=== PATIENT | male | born 2000 | race Caucasian/White ===

== ENCOUNTER → 2019-05-19 15:33 | Outpatient (POV) | payer MEDICAID, SELFPAY | PROVIDERS: Visit Provider Dermatology | DX: Z00.00 Encounter for general adult medical examination without abnormal findings (principal) ==

== ENCOUNTER 2021-05-31 16:42 | Emergency (ER) | payer OTHER, SELFPAY ==
[2021-05-31 17:38] VITALS: BP 141/83; PULSE 86; RESP 16; TEMP 36.9; O2SAT 98; BMI 36.6
--- NOTE | 2021-05-31 17:52 | HMH.EDUTC ---
[facility] [place] Clinical Impression: Encounter for laboratory testing for COVID-19 virus Disposition: Home, Self-Care Condition on Discharge: Good Instructions: DI for Viral Syndrome, DI for COVID-19 (Suspected or Confirmed ), Coronavirus Disease 2019, Preventing the Spread of Coronavirus Discharge Instructions Additional Instructions: *Monitor Temp, Over the counter Motrin or Tylenol as directed/as needed Tylenol every 4 hours and Motrin every 6 hours (as long as your family doctor has told you that you can take it) for fever or pain. and straight to ER if unable to lower temp less than 101.0 after medication given *Warm salt water gargles may help to soothe the throat *Throat Lozenges *Warm fluids like tea with honey may help to soothe the throat *Sleep elevated *Humidifier/Vaporizer Follow up IMMEDIATELY for new or worsening symptoms or no Noticeable improvement over the next 48-72 hours. 911 for difficulty breathing or swallowing You were tested for today for COVID19 your test result should be back in the next 24-48 hours, you may call to the [facility] to see if your test results are back in the next 48 hours [phone] [facility] hours are 9am-9pm You was given a handout with instructions for Self Quarantine and Self isolation for while you wait on test results and what to do if they are positive If you are positive the Health Dept will be contacting you also Referrals: Avery Moran [Primary Care Provider] - As needed Forms: Work/School Release Medical Decision Making - Barrett Inquiry Pt receiving controlled substance: No Barrett was queried for this patient: No Vital Signs: 05/31/21 17:38 Temperature 98.5 F Temperature Source Oral Pulse Rate [Left] 86 Respiratory Rate 16 Blood Pressure [Right Arm] 141/83 H Blood Pressure Mean [Right Arm] 102 02 Sat by Pulse Oximetry 98 Orders (Tests/Meds): ORDERS Category Date Time Status Covid-19 Nasal PCR ([facility]) Routine Lab 05/31/21 17:33 Received [facility] [place] - General Stated complaint: Covie with symptom Time Seen by Provider: 05/31/21 17:52 Mode of Arrival: Wheelchair Source of Information: Patient Limitations: No Limitations Description of Symptoms (Recalled from Triage Doc. by RN): pt c/o HERNANDEZ and muscle soarness HEENT Symptoms (Recalled from RN notes): Yes (HERNANDEZ) Resp Symptoms (Recalled from RN notes): No Skin Symptoms (Recalled from RN notes): No MS Symptoms (Recalled from RN notes): No Functional Status (Recalled from RN notes): muscle soarness - History of Present Illness Provider Complaint: Patient states that he was at work earlier and was having body aches, chills, and headache States that his work was concerned with COVID and wanted him to get checked - Related Data Allergies Allergy/AdvReac Type Severity Reaction Status Date / Time sulfamethoxazole Allergy Verified 05/31/21 17:44 [From Bactrim] trimethoprim [From Bactrim] Allergy Verified 05/31/21 17:44 - Worker's Comp Is this a Worker's Comp case?: No [facility] History - Hepatitis A Screen Drug use history?: No High risk sexual behaviors?: No History of sexually transmitted infection?: No Currently employed?: No Childcare worker?: No Do you have indoor plumbing?: Yes Do you have electricity?: Yes Attestation statement:: This patient has been screened for Hepatitis A risk factors. I have reviewed the patient's past medical history: Yes ROS Obtained: Yes All systems reviewed & no additional complaints, Yes Systems reviewed as appropriate & no additional complaints - Constitutional Constitutional: Reports system reviewed and no additional complaints, except as docu, Reports body ache, Reports chills, Reports fatigue, Reports fever(s), Reports headache(s) - ENT Ears, Nose, Mouth, and Throat: Reports system reviewed and no additional complaints, except as docu, Denies nasal congestion, Denies nasal discharge, Denies sore throat - Cardiovascular Cardiovascular: Reports system revie
[2021-05-31 18:13] VITALS: BP 129/80; PULSE 84; RESP 16; TEMP 36.9
== END 2021-05-31 18:13 | disposition home or self-care (01) ==
PROVIDERS: Emergency Provider Nurse Practitioner; PCP Pediatrics
DX: Z20.822 Contact with and (suspected) exposure to COVID-19 (principal)
CPT/HCPCS: 99202; G0463; U0003

== ENCOUNTER 2024-04-24 22:58 | Emergency (ER) | payer SELFPAY ==
[2024-04-24 23:00] VITALS: BP 122/82; PULSE 106; RESP 20; TEMP 37; O2SAT 98; BMI 43.4
--- NOTE | 2024-04-24 23:05 | CT_ITS ---
PROCEDURE INFORMATION: Exam: CT Lumbar Spine Without Contrast Exam date and time: 04/24/2024 11:20 PM Age: 23 years old Clinical indication: Injury or trauma; Fall; Other: Left lower back pain; Additional info: Fall from standing, left low back pain TECHNIQUE: Imaging protocol: Computed tomography of the lumbar spine without contrast. Radiation optimization: All CT scans at this facility use at least one of these dose optimization techniques: automated exposure control; mA and/or kV adjustment per patient size (includes targeted exams where dose is matched to clinical indication); or iterative reconstruction. COMPARISON: No relevant prior studies available. FINDINGS: Bones/joints: Acute fracture through the left transverse process of L1. No significant displacement. No other fractures. Soft tissues: Unremarkable. IMPRESSION: Acute fracture through the left transverse process of L1. No significant displacement. No other fractures.
--- NOTE | 2024-04-24 23:07 | ED_ITS ---
Discharge Plan Disposition Patient Disposition: Home, Self-Care Prescriptions Prescriptions: New methocarbamol 500 mg tablet 1,000 mg PO Q6H PRN (Reason: pain) Qty: 60 1RF lidocaine 5 % adhesive patch,medicated 1 patch topical DAILY PRN (Reason: pain) Qty: 30 0RF Rx Instructions: leave on most painful area for up to 12 hrs Referrals Follow up/Referrals: Provider,Referral, MD [Primary Care Provider] - See instructions Activity Restrictions/Add. Instructions Additional Instructions/Restrictions: Please take Tylenol ibuprofen Robaxin and use lidocaine patches as needed for pain. Avoid excessive exertion that causes worsening pain. Please return to the emergency department if you develop any new or worsening symptoms or become concerned for your health. Clinical Impressions Clinical Impression: Closed fracture of transverse process of lumbar vertebra Qualifiers: Encounter type: initial encounter Qualified Code(s): S32.009A - Unspecified fracture of unspecified lumbar vertebra, initial encounter for closed fracture Instructions Patient Instructions: DI for Transverse Process Fracture Discharge ED Provider: Rosendo Bartlett General Adult HPI General Chief complaint: Back Pain/Injury Stated complaint: AO fall 04/24, back pain Time Seen by Provider: 04/24/24 23:05 History of Present Illness HPI narrative: 23-year-old male without significant past medical history presents for left- sided low back pain after a fall from standing. He reports that he was wrestling with his brother when he fell backwards and landed flat on his back. Since that time he has had left-sided low back pain. He denies any numbness tingling or weakness in the legs. Denies any difficulty with urinating or bowel function. He did not take thing for pain prior to arrival. He reports pain is worse when sitting. He reports pain is primarily paraspinal. Related Data Previous Rx's Medication Instructions Recorded lidocaine 5 % topical patch 1 patch topical DAILY PRN pain #30 04/24/24 ea methocarbamol 500 mg tablet 1,000 mg (2 x 500 mg) PO Q6H PRN 04/24/24 pain #60 tabs Allergies Allergy/AdvReac Type Severity Reaction Status Date / Time sulfamethoxazole Allergy Verified 05/31/21 17:44 [From Bactrim] trimethoprim [From Bactrim] Allergy Verified 05/31/21 17:44 [facility] Disclaimer: The information contained in this section may have been updated after the patient was seen, as this information can be updated by other users. Social History Smoking Status: Current every day smoker alcohol intake: never current occupational status: employed Travel in the last 8 weeks: None ROS Obtained: Yes All systems reviewed & no additional complaints except as documented Physical Exam General General appearance: alert and in no apparent distress Head Head exam: atraumatic and normocephalic Eye Eye exam: Present normal appearance, PERRL and EOMI ENT ENT exam: Present normal oropharynx and normal external ear exam Neck Neck exam: Present normal inspection and full ROM Chest Chest inspection: Present normal inspection and symmetric chest wall rise; Absent tenderness Respiratory Respiratory exam: Present normal lung sounds bilaterally; Absent respiratory distress Cardiovascular Cardiovascular exam: Present regular rate and normal rhythm Abdominal Exam Abdominal exam: Present soft; Absent distention, tenderness or guarding Extremities Exam Extremities exam: Present normal inspection; Absent edema or joint swelling Back Exam Back exam: Present normal inspection and tenderness (Left paraspinal lumbar) Neurological Exam Neurological exam: Present alert and oriented X3; Absent motor sensory deficit Psychiatric Psychiatric exam: Present normal affect and normal mood Skin Skin exam: Present warm, dry and normal color Lymphatic Lymphatic Findings: no adenopathy Medical Decision Making Medical Records Medical records reviewed: Yes I reviewed the patient's medical records. Barrett Inquiry Pt receiving controlled substance: No Barrett was queried for this patient: No Vital Signs: 04/24/24 23:00 04/25/24 00:01 Temperature 98.6 F 98.2 F Temperature Source Oral Oral Pulse Rate 72 Pulse Rate [Right Radial] 106 H Respiratory Rate 20 18 Blood Pressure 128/71 Blood Pressure [Right Arm] 122/82 Blood Pressure Mean [Right Arm] 95 Blood Pressure Source [Right Arm] Automatic Cuff Blood Pressure Position [Right Arm] Supine 02 Sat by Pulse Oximetry 98 Oxygen Delivery Method Room Air Room Air Lab Data Lab results reviewed: Yes I reviewed the patient's lab results. Orders (Tests/Meds): ED MEDICATIONS Discontinued Medications Generic Name Dose Route Start Last Admin Trade Name Freq PRN Reason Stop Dose Admin Acetaminophen 1,000 mg 04/24/24 23:05 04/24/24 23:12 Acetaminophen 500mg Tab PO 04/24/24 23:06 1,000 mg ONCE ONE Administration Ketorolac Tromethamine 30 mg 04/24/24 23:05 04/24/24 23:13 Ketorolac 30mg/Ml Vial IM 04/24/24 23:06 30 mg ONCE ONE Administration Methocarbamol 1,000 mg 04/24/24 23:05 04/24/24 23:13 Methocarbamol 500mg Tablet PO 04/24/24 23:06 1,000 mg ONCE ONE Administration ORDERS Category Date Time Status CT lumbar spine wo con Stat Cat Scan 04/24/24 23:05 Completed Medical Decision Narrative: 23-year-old male without significant past medical history presents with left- sided low back pain after a fall today. Differential diagnosis includes but not limited to fracture, dislocation, muscle strain, neurovascular injury. Exam is benign, chest mild left paraspinal tenderness. Patient given Tylenol and Toradol Robaxin for pain control. Will evaluate with Noncon CT of the lumbar spine. CT imaging independently interpreted by me and shows a minimally displaced left L1 transverse process fracture. No evidence of compression fracture or unstable injury. These findings were communicated with patient. He was discharged in stable condition with prescription for lidocaine patches, muscle relaxers, return precautions. Procedures Risk/Benefits of Procedure(s) Were Explained: Yes Critical Care Critical Care Time Critical Care Time: No
[2024-04-24] MEDS: ACETAMINOPHEN 500MG TAB 1000 MG PO (23:12)
[2024-04-24] MEDS: KETOROLAC 30MG/ML VIAL 30 MG IM (23:13)
[2024-04-24] MEDS: METHOCARBAMOL 500MG TABLET 1000 MG PO (23:13)
[2024-04-25 00:01] VITALS: BP 128/71; PULSE 72; RESP 18; TEMP 36.8; O2SAT 99
== END 2024-04-25 00:05 | disposition home or self-care (01) ==
PROVIDERS: Emergency Provider Emergency Medicine
DX: S32.019A Unspecified fracture of first lumbar vertebra, initial encounter for closed fracture (principal); W18.30XA Fall on same level, unspecified, initial encounter; M54.59 Other low back pain; F17.210 Nicotine dependence, cigarettes, uncomplicated
CPT/HCPCS: 72131; 96372; 99284; J1885

== ENCOUNTER 2024-12-27 21:23 | Emergency (ER) | payer SELFPAY ==
[2024-12-27 22:32] VITALS: BP 147/89; PULSE 103; RESP 17; TEMP 36.9; O2SAT 98; BMI 33.9
[2024-12-27] MEDS: KETOROLAC 30MG/ML VIAL 30 MG IM (23:32)
--- NOTE | 2024-12-27 23:39 | ED_ITS ---
Discharge Plan Disposition Patient Disposition: Home, Self-Care Condition: Good Prescriptions Prescriptions: New naproxen 500 mg tablet 500 mg PO BID Qty: 14 0RF prednisone 20 mg tablet 40 mg PO BID 5 Days Qty: 20 0RF Referrals Follow up/Referrals: Provider,Referral, [Primary Care Provider] - See instructions Activity Restrictions/Add. Instructions Additional Instructions/Restrictions: You were evaluated in the ER and are appropriate for discharge at this time. Take the prescribed naproxen as directed. Also take the prescribed prednisone as directed. Please call your primary care doctor and make an appointment for reevaluation in 2 to 3 days. Return to the ER with any new, worsening, or otherwise concerning symptoms as discussed. Clinical Impressions Clinical Impression: Pain of right great toe Print Language Print Language: Cameroonian Discharge ED Provider: Washington Hong Adult HPI General Chief complaint: PAIN Stated complaint: RT foot pain, poss gout Time Seen by Provider: 12/27/24 23:38 Mode of Arrival: Ambulatory Source of Information: Patient Description of Symptoms (Recalled from ER Triage Doc. by RN): He states he thinks he has gout in his right great toe. He states the pain is 8/10 and that it started Kirit night. He states he took ibuprofen 800mg at 1800. He denies having been previously diagnosed with gout. Thought he had a fever around 1800 but states he did not check his temperature. History of Present Illness HPI narrative: 24-year-old male presents to the ER with complaints of pain in the right great toe starting Kirit night. He took ibuprofen earlier. He reports he has previously had gout and this feels the same. He does not know what he has taken in the past for gout. No history of IV drug use. Patient denies any documented fevers, chills, chest pain, cough, congestion, other body aches, he has no other involved joints, states he otherwise feels well and normal. No known injuries. Related Data Previous Rx's ?Medication ?Instructions ?Recorded naproxen 500 mg tablet 500 mg PO BID #14 tabs 12/27/24 prednisone 20 mg tablet 40 mg (2 x 20 mg) PO BID 5 days 12/27/24 #20 tabs Allergies Allergy/AdvReac Type Severity Reaction Status Date / Time sulfamethoxazole (From Allergy Rash Verified 12/27/24 22:31 Bactrim) trimethoprim (From Bactrim) Allergy Rash Verified 12/27/24 22:31 [facility] Disclaimer: The information contained in this section may have been updated after the patient was seen, as this information can be updated by other users. Social History (Updated 04/25/24 @ 00:12 by Rosendo Bartlett MD) Smoking Status: Former smoker alcohol intake: never current occupational status: employed Travel in the last 8 weeks: None Have you lived/traveled outside [place] in past 30 days?: No Contact w/someone who lives/traveled outside [place] past 30 days?: No Exposure to someone with infectious disease in past 14 days?: No Do you have a fever (greater than 100.4 F or 38 C)?: No Have you tested positive for COVID-19: No Exposed to someone with COVID-19 in past 14 days?: No Do you have a sore throat?: No Do you have a cough?: No Do you have any weakness?: No Do you have any diarrhea?: No Are you experiencing any unusual bleeding?: No Do you have any muscle aches/pain?: No Do you have any abdominal pain?: No Are you experiencing loss of taste or smell?: No ROS Obtained: Yes Systems reviewed as appropriate & no additional complaints except as documented Per HPI Physical Exam General General appearance: alert, in no apparent distress and obese Head Head exam: atraumatic and normocephalic Eye Eye exam: Present PERRL and EOMI ENT ENT exam: Present mucous membranes moist Neck Neck exam: Present normal inspection and full ROM Chest Chest inspection: Present symmetric chest wall rise Respiratory Respiratory exam: Absent respiratory distress or stridor Cardiovascular Cardiovascular exam: Present regular rate and normal rhythm Extremities Exam Extremities exam: Present full ROM and joint swelling (Mild swelling and tenderness of the first metatarsophalangeal joint with slight associated erythema, there is no induration or fluctuance, neurovascularly intact, no deformity or bruising); Absent edema Neurological Exam Neurological exam: Present alert and oriented X3; Absent motor sensory deficit Psychiatric Psychiatric exam: Present normal affect and normal mood Skin Skin exam: Present warm and dry Medical Decision Making Medical Records Screening: Per USPSTF and CDC recommendations, given the prevalence of disease in our region, it is our hospital?s policy to screen for HIV and viral Hepatitis for all patients aged 18 and over and those with ongoing risk factors. Barrett Inquiry Pt receiving controlled substance: No Vital Signs: 12/27/24 22:32 12/27/24 23:47 Temperature 98.5 F 98.5 F Temperature Source Oral Oral Pulse Rate 90 Pulse Rate [Right Brachial] 103 H Respiratory Rate 17 18 Blood Pressure 137/74 Blood Pressure [Right Arm] 147/89 H Blood Pressure Mean [Right Arm] 108 Blood Pressure Source [Right Arm] Automatic Cuff Blood Pressure Position [Right Arm] Sitting 02 Sat by Pulse Oximetry 98 Oxygen Delivery Method Room Air Room Air Orders (Tests/Meds): ED MEDICATIONS Discontinued Medications Generic Name Dose Route Start Last Admin Trade Name Freq PRN Reason Stop Dose Admin Ketorolac Tromethamine 30 mg 12/27/24 23:28 12/27/24 23:32 Ketorolac 30mg/Ml Vial IM 12/27/24 23:29 30 mg ONCE ONE Administration Medical Decision Narrative: In summary, this 24-year-old male who reports history of gout presents to the emergency department today with concerns of gout flare in the right great toe. On initial evaluation patient is hemodynamically stable, afebrile, physical exam is notable for erythema, tenderness, and swelling of the right first metatarsophalangeal joint without induration or fluctuance, neurovascularly intact, no deformity or bruising. Differential diagnosis includes but is not limited to gout which is by far the most likely given patient's age, history, and location of pain. I considered the possibility of septic joint the patient has no reported risk factors and has no evidence of systemic illness. I do not believe labs or imaging are indicated at this time. Patient is reliable and reports he has a primary care doctor to follow-up with and is willing to return to the ER if anything is new or worsening. He received a dose of Toradol in the ER and I prescribed naproxen for outpatient management. Patient was given instructions on symptomatic management, follow up instructions, and strict return precautions for the emergency department including specific instructions to return if you were to develop any concerning signs of septic joint which I specifically discussed with him. Patient indicated understanding and was discharged in stable condition. Critical Care Critical Care Time Critical Care Time: No
[2024-12-27 23:47] VITALS: BP 137/74; PULSE 90; RESP 18; TEMP 36.9; O2SAT 95
== END 2024-12-27 23:49 | disposition home or self-care (01) ==
PROVIDERS: Emergency Provider Emergency Medicine
DX: M79.674 Pain in right toe(s) (principal); R50.9 Fever, unspecified
CPT/HCPCS: 96372; 99283; J1885

== ENCOUNTER 2025-01-25 17:14 | Outpatient (CLI) | payer OTHER, SELFPAY ==
[2025-01-25 17:41] LABS: Basophils # 0.1 K/mm3 (0-0.2); Basophils % 0.8 % (0.1-2.0); Eosinophils # 0.1 K/mm3 (0.0-0.4); Hematocrit 43.4 % (42.0-52.0); Hemoglobin 15.5 g/dL (14.1-18.0); Lymphocytes # 2.6 K/mm3 (0.7-4.5); Lymphocytes % 39.6 % (10-50); Mean Corpuscular HGB Conc 35.7 g/dL (31.8-35.4); Mean Corpuscular Hemoglobin 29.4 pg (27.0-31.2); Mean Corpuscular Volume 82.2 fl (80-94); Mean Platelet Volume 9.8 fl (7.4-10.4); Monocytes # 0.5 K/mm3 (0.1-1.0); Monocytes % 8.2 % (1.7-9.3); Neutrophils # 3.3 K/mm3 (1.8-7.8); Neutrophils % 49.2 % (37.0-80.0); Platelet Count 278 K/mm3 (142-424); Red Blood Count 5.28 M/mm3 (4.60-6.20); Red Cell Distribution Width 11.9 % (11.5-17.5); White Blood Count 6.6 K/mm3 (4.8-10.8)
[2025-01-25 18:21] LABS: Alanine Aminotransferase 85 U/L (12-78); Albumin Level 4.7 g/dl (3.5-5.0); Albumin/Globulin Ratio 1.6 (1.1-1.8); Alkaline Phosphatase 69 U/L (38-126); Anion Gap 15.1 mEq/L (5-15); Aspartate Amino Transferase 49 U/L (17-59); Bilirubin,Total 0.8 mg/dl (0.2-1.3); Blood Urea Nitrogen 11 mg/dl (9-20); Calcium 10.4 mg/dl (8.4-10.2); Carbon Dioxide 25 mmol/L (22.0-30.0); Chloride 102 mmol/L (98-107); Chol/HDL Ratio 4.6 (1-3.5); Cholesterol 162 mg/dl (140-200); Erythrocyte Sedimentation Rate 6 mm/hr (0-15); Estimated Glomerular Filt Rate 102 ml/min (>60); GFR (African American) 123 ML/MIN (>60); Globulin 2.9 g/dL (1.3-3.2); Glucose 84 mg/dl (74-100); HDL Cholesterol 35 mg/dl (40-60); Potassium 4.1 mmoL/L (3.5-5.1); Sodium 138 mmol/L (136-145); Total Protein,Serum 7.6 g/dl (6.3-8.2); Triglycerides 100 mg/dl (30-150); Uric Acid 9.2 mg/dl (3.5-8.5); VLDL Cholesterol 20 mg/dL (0-40)
[2025-01-25 18:38] LABS: C-Reactive Protein 0.9 mg/L (0-4); Direct LDL Cholesterol 98.31 mg/dL (100-129)
[2025-01-25 18:52] LABS: Thyroid Stimulating Hormone 1.85 uIU/mL (0.465-4.68)
[2025-01-25 20:04] LABS: Hemoglobin A1C 5.3 % (4.0-6.0)
== END 2025-01-25 23:59 | disposition home or self-care (01) ==
LOC: LAB 17:19
PROVIDERS: Visit Provider Physician Assistant
DX: R53.83 Other fatigue (principal); R29.818 Other symptoms and signs involving the nervous system; E66.01 Morbid (severe) obesity due to excess calories
CPT/HCPCS: 36415; 80053; 80061; 83036; 84443; 84550; 85025; 85651; 86140

== ENCOUNTER 2025-01-26 16:53 | Outpatient (CLI) | payer OTHER, SELFPAY ==
[2025-01-28 05:08] LABS: HBsAg Screen Negative (Negative); HCV Ab Non Reactive (Non Reactive); Hep A Ab, IGM Negative (Negative); Hep B Core Ab, IgM Negative (Negative)
== END 2025-01-26 23:59 | disposition home or self-care (01) ==
LOC: LAB 16:54
PROVIDERS: PCP Physician Assistant; Visit Provider Physician Assistant
DX: R74.01 Elevation of levels of liver transaminase levels (principal)
CPT/HCPCS: 36415; 80074; 86803

== ENCOUNTER 2025-02-01 17:29 | Outpatient (CLI) | payer OTHER, SELFPAY ==
--- NOTE | 2025-02-01 17:38 | XR_ITS ---
PROCEDURE INFORMATION: Exam: XR Right Foot Exam date and time: 02/01/2025 5:39 PM Age: 24 years old Clinical indication: Foot; Right; Pain along lateral aspect TECHNIQUE: Imaging protocol: Radiologic exam of the right foot. Views: 3 or more views. COMPARISON: No relevant prior studies available. FINDINGS: Bones/joints: Normal. Soft tissues: Tiny punctate densities around the skin of the foot are most likely external to the patient. Lateral soft tissue swelling around 5th MTP joint. IMPRESSION: Lateral soft tissue swelling around 5th MTP joint. Please exclude cellulitis and posttraumatic etiologies. There is no bony destruction or erosion to correlate with osteomyelitis.
== END 2025-02-01 23:59 | disposition home or self-care (01) ==
LOC: RAD 17:32
PROVIDERS: PCP Nurse Practitioner Family; Visit Provider Physician Assistant
DX: M79.671 Pain in right foot (principal)
CPT/HCPCS: 73630

== ENCOUNTER 2025-02-02 17:03 | Outpatient (CLI) | payer OTHER, SELFPAY ==
[2025-02-02 17:44] LABS: Basophils # 0.1 K/mm3 (0-0.2); Basophils % 0.8 % (0.1-2.0); Eosinophils # 0.2 K/mm3 (0.0-0.4); Eosinophils % 2.5 % (0.1-12.0); Hematocrit 41.2 % (42.0-52.0); Hemoglobin 14.5 g/dL (14.1-18.0); Lymphocytes # 2.3 K/mm3 (0.7-4.5); Lymphocytes % 37.9 % (10-50); Mean Corpuscular HGB Conc 35.2 g/dL (31.8-35.4); Mean Corpuscular Hemoglobin 29.3 pg (27.0-31.2); Mean Corpuscular Volume 83.2 fl (80-94); Monocytes # 0.5 K/mm3 (0.1-1.0); Neutrophils % 49.6 % (37.0-80.0); Nucleated Red Blood Cells # 0 10^3/uL; Nucleated Red Blood Cells % 0 %; Platelet Count 286 K/mm3 (142-424); Red Blood Count 4.95 M/mm3 (4.60-6.20); Red Cell Distribution Width 12.4 % (11.5-17.5); Red Cell Distribution Width-SD 37.2 fL
[2025-02-02 18:11] LABS: Erythrocyte Sedimentation Rate 9 mm/hr (0-15)
[2025-02-02 19:14] LABS: Alanine Aminotransferase 56 U/L (12-78); Albumin Level 4.3 g/dl (3.5-5.0); Albumin/Globulin Ratio 1.5 (1.1-1.8); Alkaline Phosphatase 70 U/L (38-126); Aspartate Amino Transferase 37 U/L (17-59); Bilirubin,Total 0.7 mg/dl (0.2-1.3); Blood Urea Nitrogen 7 mg/dl (9-20); Calcium 9.6 mg/dl (8.4-10.2); Carbon Dioxide 28 mmol/L (22.0-30.0); Chloride 103 mmol/L (98-107); Estimated Glomerular Filt Rate 117 ml/min (>60); GFR (African American) 141 ML/MIN (>60); Globulin 2.8 g/dL (1.3-3.2); Glucose 88 mg/dl (74-100); Sodium 139 mmol/L (136-145); Total Protein,Serum 7.1 g/dl (6.3-8.2); Uric Acid 8.9 mg/dl (3.5-8.5)
[2025-02-02 19:20] LABS: C-Reactive Protein 0.8 mg/L (0-4)
== END 2025-02-02 23:59 | disposition home or self-care (01) ==
LOC: LAB 17:06
PROVIDERS: PCP Nurse Practitioner Family; Visit Provider Physician Assistant
DX: M79.671 Pain in right foot (principal); R60.0 Localized edema
CPT/HCPCS: 36415; 80053; 84550; 85025; 85651; 86140

== ENCOUNTER 2025-02-04 15:55 | Outpatient (CLI) | payer OTHER, SELFPAY ==
--- NOTE | 2025-02-04 15:58 | MR_ITS ---
PROCEDURE INFORMATION: Exam: MR Right Lower Extremity Other Than Joint Without Contrast; Foot Exam date and time: 02/04/2025 4:16 PM Age: 24 years old Clinical indication: Pain; Foot; Right; Additional info: RT foot pain/edema, top of foot and lateral aspect. TECHNIQUE: Imaging protocol: Magnetic resonance imaging of the right lower extremity without contrast. Exam focused on the foot. COMPARISON: CR XR FOOT RT MIN 3V 02/01/2025 5:39 PM FINDINGS: Bones/joints: There is diffuse bone marrow edema along the proximal and mid shaft of the 4th metatarsal without underlying fracture line likely secondary to a stress fracture. There is also small focus of mild bone marrow edema at the base of the 3rd metatarsal shaft likely representing a mild stress reaction. Remainder of the visualized osseous structures and joint surfaces are unremarkable. Tendons/ligaments: Visualized tendons and muscle bundles are unremarkable. Capsular ligaments are intact. Soft tissues: There is multiple sites of micrometallic artifact along the plantar aspect of the hindfoot just deep to the skin surface presumably secondary to tiny metallic foreign bodies.. There is no soft tissue mass or fluid collection. IMPRESSION: 1. Stress fracture involving the 4th metatarsal shaft. 2. Mild stress reaction involving the proximal shaft of the 3rd metatarsal. 3. Micrometallic artifact present superficially along the plantar aspect of the hindfoot.
--- NOTE | 2025-02-04 16:01 | XR_ITS ---
FINAL REPORT CLINICAL HISTORY: MRI CLEARANCE, POSSIBLE METAL FRAGMENTS IN EYES FINDINGS: ORBITS Look up and look down views were obtained. No fracture is identified. The sinuses are clear. No foreign body is identified. IMPRESSION: No acute process. Reviewed, Interpreted and Dictated by Cuauhtemoc Granado MD Transcribed by Alia Arizmendi Authenticated and [facility]
== END 2025-02-04 23:59 | disposition home or self-care (01) ==
LOC: RAD 15:56
PROVIDERS: PCP Physician Assistant; Visit Provider Physician Assistant
DX: M79.671 Pain in right foot (principal); R60.9 Edema, unspecified
CPT/HCPCS: 70200; 73718

== ENCOUNTER 2025-03-01 09:15 | Outpatient (RCR) | payer OTHER, SELFPAY | END 2025-03-01 23:59 | disposition home or self-care (01) | LOC: PT 09:15 | PROVIDERS: Visit Provider Nurse Practitioner Family | DX: M84.375G Stress fracture, left foot, subsequent encounter for fracture with delayed healing (principal) | CPT/HCPCS: 97760 ==